=== PATIENT | male | born 1945 | race Caucasian/White ===

== ENCOUNTER 2017-10-16 20:05 | Emergency (ER) | payer OTHER ==
[~2017-10-16] VITALS: Ht 193 cm; Wt 100.0 kg
[2017-10-16 20:20] VITALS: BP 149/78; PULSE 97; RESP 20; TEMP 98; O2SAT 99
--- NOTE | 2017-10-16 20:46 | PD ---
HPI Chief Complaint: Psychiatric Symptoms Time Seen by Provider: 20:46 Travel History International Travel<30 days: No Contact w/Intl Traveler<30days: No Traveled to known affect area: No History of Present Illness HPI 72-year-old male brought in under the Wu act from the "[facility]" as he was acting out against staff, and they felt he was too much for them to handle. Patient has a history of dementia. He has never been seen here before. I'm not sure of his baseline. There is no sign of injury. He is currently cooperative with EMS, and denies acting out. He denies suicidal or homicidal ideation. He has no acute complaints of pain or injury. He has no known drug allergies. [facility] Social History Alcohol Use: No Tobacco Use: No Substance Use: No Allergies-Medications (Allergen,Severity, Reaction): Coded Allergies: No Known Allergies (Unverified , 10/16/17) Review of Systems ROS Limitations: Altered Mental Status Except as stated in HPI: all other systems reviewed are Neg General / Constitutional: No: Fever Eyes: No: Visual changes HENT: No: Headaches Cardiovascular: No: Chest Pain or Discomfort Respiratory: No: Shortness of Breath Gastrointestinal: No: Abdominal Pain Genitourinary: No: Dysuria Musculoskeletal: No: Pain Skin: No Rash Neurologic: No: Weakness Psychiatric: No: Depression Endocrine: No: Polydipsia Hematologic/Lymphatic: No: Easy Bruising Physical Exam Exam Limitations: Altered Mental Status Narrative GENERAL: The patient responds to commands, but is confused and has nonsensical answers to questions. He does not appear intoxicated. SKIN: Warm and dry. Normal color. Normal turgor. No sign of trauma. HEAD: Atraumatic. Normocephalic. EYES: Pupils equal and round. No scleral icterus. No injection or drainage. ENT: No nasal bleeding or discharge. Mucous membranes pink and moist. Thanks is clear. Airway is patent. Tongue is midline. NECK: Trachea midline. No JVD. Supple and nontender. CARDIOVASCULAR: Regular rate and rhythm. RESPIRATORY: No accessory muscle use. Clear to auscultation. Breath sounds equal bilaterally. GASTROINTESTINAL: Abdomen soft, non-tender, nondistended. Hepatic and splenic margins not palpable. MUSCULOSKELETAL: Extremities without clubbing, cyanosis, or edema. No obvious deformities. NEUROLOGICAL: Awake and alert. No obvious cranial nerve deficits. Motor grossly within normal limits. Five out of 5 muscle strength in the arms and legs. Normal speech. PSYCHIATRIC: Unable to be evaluated at this time. Data Data Last Documented VS Vital Signs Date Time Temp Pulse Resp B/P (MAP) Pulse Ox O2 Delivery O2 Flow Rate FiO2 10/16/17 20:20 98.0 97 20 149/78 (101) 99 Room Air Orders Orders Complete Blood Count With Diff (10/16/17 20:46) Comprehensive Metabolic Panel (10/16/17 20:46) Thyroid Stimulating Hormone (10/16/17 20:46) Urinalysis - C+S If Indicated (10/16/17 20:46) Electrocardiogram (10/16/17 20:46) Psych Screen (10/16/17 20:46) Drug Screen, Random Urine (10/16/17 20:46) Alcohol (Ethanol) (10/16/17 20:46) Ct Brain W/O Iv Contrast(Rout) (10/16/17 20:50) Lorazepam Inj (Ativan Inj) (10/16/17 21:00) Lorazepam Inj (Ativan Inj) (10/16/17 21:30) Haloperidol Inj (Haldol Inj) (10/16/17 21:30) Diphenhydramine Inj (Benadryl Inj) (10/16/17 21:30) Labs Laboratory Tests Test 10/16/17 21:00 White Blood Count 10.5 TH/MM3 Red Blood Count 4.92 MIL/MM3 Hemoglobin 15.2 GM/DL Hematocrit 44.3 % Mean Corpuscular Volume 90.2 FL Mean Corpuscular Hemoglobin 30.9 PG Mean Corpuscular Hemoglobin Concent 34.3 % Red Cell Distribution Width 13.9 % Platelet Count 127 TH/MM3 Mean Platelet Volume 8.1 FL Neutrophils (%) (Auto) 83.0 % Lymphocytes (%) (Auto) 12.2 % Monocytes (%) (Auto) 3.9 % Eosinophils (%) (Auto) 0.7 % Basophils (%) (Auto) 0.2 % Neutrophils # (Auto) 8.7 TH/MM3 Lymphocytes # (Auto) 1.3 TH/MM3 Monocytes # (Auto) 0.4 TH/MM3 Eosinophils # (Auto) 0.1 TH/MM3 Basophils # (Auto) 0.0 TH/MM3 CBC Comment DIFF FINAL Differential Comment Blood Urea Nitrogen 19 MG/DL Creatinine 1.31 MG/DL Random Glucose 102 MG/DL Total Protein 7.4 GM/DL Albumin 4.2 GM/DL Calcium Level 9.7 MG/DL Alkaline Phosphatase 58 U/L Aspartate Amino Transf (AST/SGOT) 44 U/L Alanine Aminotransferase (ALT/SGPT) 22 U/L Total Bilirubin 1.0 MG/DL Sodium Level 143 MEQ/L Potassium Level 4.9 MEQ/L Chloride Level 108 MEQ/L Carbon Dioxide Level 29.0 MEQ/L Anion Gap 6 MEQ/L Estimat Glomerular Filtration Rate 54 ML/MIN Thyroid Stimulating Hormone 3rd Gen 1.360 uIU/ML Ethyl Alcohol Level LESS THAN 3 MG/DL MDM Medical Decision Making Medical Screen Exam Complete: Yes Emergency Medical Condition: Yes Differential Diagnosis Dementia. Altered mental status. Possible psych issue. Narrative Course Labs ordered including CBC, CMP, urinalysis, urine drug screen, serum alcohol, TSH. CT of the head is ordered. IV access is obtained patient is given lorazepam 1 mg IV. Patient continues to be agitated and wanting to get up and wander, and I feel he is a fall risk. Patient is given additional lorazepam 1 mg IV as well as 5 mg of Haldol IM, and 25 mg Benadryl IV. CBC is unremarkable. EKG showed sinus rhythm with frequent ventricular premature complexes. I have nothing to compare to this is reviewed with Dr. Trejo. 2300 hrs. care of patient is turned over to Dr. Trejo, and all labs are pending. Psych screen is ordered. Condition: Stable Leon Reinoso Oct 16, 2017 20:46
[2017-10-16] MEDS ORDERED: LORazepam 2 MG/ML VIAL IV PUSH ONE ×2 (21:00→21:30)
[2017-10-16] MEDS ORDERED: diphenhydrAMINE HCL 50 MG/ML VIAL IV PUSH ONE (21:30)
[2017-10-16] MEDS ORDERED: HALOPERIDOL LACTATE 5 MG/ML AMP IM ONE (21:30)
[2017-10-16 21:42] LABS: AUTOMATED NEUTROPHIL # 8.7 TH/MM3 (1.8-7.7); BASOPHIL % 0.2 % (0.0-2.0); EOSINOPHIL # 0.1 TH/MM3 (0-0.4); EOSINOPHIL % 0.7 % (0.0-4.0); HEMATOCRIT 44.3 % (39.0-51.0); HEMOGLOBIN 15.2 GM/DL (13.0-17.0); LYMPH % 12.2 % (9.0-44.0); LYMPHOCYTE # 1.3 TH/MM3 (1.0-4.8); MEAN CELL VOLUME 90.2 FL (80.0-100.0); MEAN CORPUSCULAR HEMOGLOBIN 30.9 PG (27.0-34.0); MEAN CORPUSCULAR HGB CONC 34.3 % (32.0-36.0); MEAN PLATELET VOLUME 8.1 FL (7.0-11.0); MONO % 3.9 % (0.0-8.0); MONOCYTE # 0.4 TH/MM3 (0-0.9); PLATELET COUNT 127 TH/MM3 (150-450); RED BLOOD COUNT 4.92 MIL/MM3 (4.50-5.90); RED CELL DISTRIBUTION WIDTH 13.9 % (11.6-17.2); WHITE BLOOD COUNT 10.5 TH/MM3 (4.0-11.0)
[2017-10-16 22:07] LABS: ALT (GPT) 22 U/L (12-78)
--- NOTE | 2017-10-16 22:14 | RADRPT ---
EXAM DATE/TIME: 10/16/2017 21:56 [facility] COMPARISON: No previous studies available for comparison. INDICATIONS : Altered mental status. RADIATION DOSE: 69.15 CTDIvol (mGy) MEDICAL HISTORY : Dementia. SURGICAL HISTORY : None. ENCOUNTER: Initial ACUITY: 1 day PAIN SCALE: 0/10 LOCATION: cranial TECHNIQUE: Multiple contiguous axial images were obtained of the head. Using automated exposure control and adj ustment of the mA and/or kV according to patient size, radiation dose was kept as low as reasonably a chievable to obtain optimal diagnostic quality images. DICOM format image data is available electro nically for review and comparison. FINDINGS: CEREBRUM: The ventricles are normal for age. No evidence of midline shift, mass lesion, hemorrhage or acute in farction. No extra-axial fluid collections are seen. POSTERIOR FOSSA: The cerebellum and brainstem are intact. The 4th ventricle is midline. The cerebellopontine angle i s unremarkable. EXTRACRANIAL: The visualized portion of the orbits is intact. SKULL: The calvaria is intact. No evidence of skull fracture. CONCLUSION: 1. No acute intracranial abnormalities. Salvador Davis MD on October 16, 2017 at 22:09 Board Certified Radiologist. This report was verified electronically.
[2017-10-16 22:17] LABS: ALKALINE PHOSPHATASE 58 U/L (45-117); TOTAL PROTEIN 7.4 GM/DL (6.4-8.2)
[2017-10-16 22:18] LABS: ALBUMIN 4.2 GM/DL (3.4-5.0); AST (GOT) 44 U/L (15-37); BLOOD UREA NITROGEN 19 MG/DL (7-18); CALCIUM 9.7 MG/DL (8.5-10.1); CHLORIDE 108 MEQ/L (98-107); CREATININE 1.31 MG/DL (0.60-1.30); GLOMERULAR FILTRATION RATE 54 ML/MIN (>89); GLUCOSE,RANDOM 102 MG/DL (74-106); SODIUM (NA) 143 MEQ/L (136-145)
--- NOTE | 2017-10-16 23:09 | PD ---
Data Data Last Documented VS Vital Signs Date Time Temp Pulse Resp B/P (MAP) Pulse Ox O2 Delivery O2 Flow Rate FiO2 10/17/17 02:01 97.8 82 20 141/82 (101) 100 10/17/17 02:01 Room Air Orders Orders Complete Blood Count With Diff (10/16/17 20:46) Comprehensive Metabolic Panel (10/16/17 20:46) Thyroid Stimulating Hormone (10/16/17 20:46) Urinalysis - C+S If Indicated (10/16/17 20:46) Electrocardiogram (10/16/17 20:46) Drug Screen, Random Urine (10/16/17 20:46) Alcohol (Ethanol) (10/16/17 20:46) Ct Brain W/O Iv Contrast(Rout) (10/16/17 20:50) Lorazepam Inj (Ativan Inj) (10/16/17 21:00) Lorazepam Inj (Ativan Inj) (10/16/17 21:30) Haloperidol Inj (Haldol Inj) (10/16/17 21:30) Diphenhydramine Inj (Benadryl Inj) (10/16/17 21:30) Ed Discharge Order (10/16/17 23:39) Labs Laboratory Tests Test 10/16/17 21:00 White Blood Count 10.5 TH/MM3 Red Blood Count 4.92 MIL/MM3 Hemoglobin 15.2 GM/DL Hematocrit 44.3 % Mean Corpuscular Volume 90.2 FL Mean Corpuscular Hemoglobin 30.9 PG Mean Corpuscular Hemoglobin Concent 34.3 % Red Cell Distribution Width 13.9 % Platelet Count 127 TH/MM3 Mean Platelet Volume 8.1 FL Neutrophils (%) (Auto) 83.0 % Lymphocytes (%) (Auto) 12.2 % Monocytes (%) (Auto) 3.9 % Eosinophils (%) (Auto) 0.7 % Basophils (%) (Auto) 0.2 % Neutrophils # (Auto) 8.7 TH/MM3 Lymphocytes # (Auto) 1.3 TH/MM3 Monocytes # (Auto) 0.4 TH/MM3 Eosinophils # (Auto) 0.1 TH/MM3 Basophils # (Auto) 0.0 TH/MM3 CBC Comment DIFF FINAL Differential Comment Blood Urea Nitrogen 19 MG/DL Creatinine 1.31 MG/DL Random Glucose 102 MG/DL Total Protein 7.4 GM/DL Albumin 4.2 GM/DL Calcium Level 9.7 MG/DL Alkaline Phosphatase 58 U/L Aspartate Amino Transf (AST/SGOT) 44 U/L Alanine Aminotransferase (ALT/SGPT) 22 U/L Total Bilirubin 1.0 MG/DL Sodium Level 143 MEQ/L Potassium Level 4.9 MEQ/L Chloride Level 108 MEQ/L Carbon Dioxide Level 29.0 MEQ/L Anion Gap 6 MEQ/L Estimat Glomerular Filtration Rate 54 ML/MIN Thyroid Stimulating Hormone 3rd Gen 1.360 uIU/ML Ethyl Alcohol Level LESS THAN 3 MG/DL MDM Medical Record Reviewed: Yes Supervised Visit with [id number]: Yes Narrative Course CBC & BMP Diagram 10/16/17 21:00 Total Protein 7.4, Albumin 4.2, Calcium Level 9.7, Alkaline Phosphatase 58, Aspartate Amino Transf (AST/SGOT) 44 H, Alanine Aminotransferase (ALT/SGPT) 22, Total Bilirubin 1.0 The patient is 72 and has dementia and was agitated upon placement in a new living facility. This is not an indication for a Wu act nor is it a medical emergency requiring hospitalization. Wu act lifted by the undersigned. The patient will be sent back to the sending facility where appropriate dementia management interventions can be performed. Diagnosis Primary Impression: Dementia Qualified Codes: F03.90 - Unspecified dementia without behavioral disturbance Referrals: Primary Care Physician 1 day Med/Other Pt SpecificInfo: No Change to Meds Disposition: 01 DISCHARGE HOME Condition: Stable Buddy Trejo MD Oct 16, 2017 23:08
[2017-10-16 23:38] VITALS: BP 148/90; PULSE 74; RESP 18; O2SAT 95
[2017-10-17 02:01] VITALS: BP 141/82; PULSE 82; RESP 20; TEMP 97.8; O2SAT 100
[2017-10-17 07:50] VITALS: BP 149/92; PULSE 75; RESP 18; TEMP 97.6; O2SAT 95
--- NOTE | 2017-10-17 13:49 | EKG ---
Date Performed: 10/16/2017 Time Performed: 20:55:10 PTAGE: 72 years EKG: Sinus rhythm WITH FREQUENT VENTRICULAR PREMATURE COMPLEXES ABNORMAL RHYTHM ECG NO PREVIOUS TRACING DOCTOR: Bentley Cisneros Interpretating Date/Time 10/17/2017 13:44:17
== END 2017-10-17 11:17 | disposition home or self-care (01) ==
LOC: NEDAMB 20:05 → NEPB 10-17 11:17
DX: F03.90 Unspecified dementia, unspecified severity, without behavioral disturbance, psychotic disturbance, mood disturbance, and anxiety (principal); R94.31 Abnormal electrocardiogram [ECG] [EKG]
CPT/HCPCS: 70450; 80053; 80307; 84443; 85025; 93005; 96372; 96374; 96375; 96376; 99285; J1200; J1630; J2060